=== PATIENT | female | born 1975 | race African-American/Black ===

== ENCOUNTER 2018-08-30 09:00 | Emergency (ER) | payer SELFPAY ==
[2018-08-30 09:04] VITALS: BMI 30.4
[2018-08-30] MEDS ORDERED: KETOROLAC TROMETHAMINE 30 MG/1 ML VIAL IVPUSH ONE (09:17)
--- NOTE | 2018-08-30 09:17 | PDOC ---
History of Present Illness - General Chief Complaint: Chest Pain Stated Complaint: CHEST PAIN Time Seen by Provider: 08/30/18 09:08 History Source: Patient Exam Limitations: No Limitations - History of Present Illness Initial Comments: 08/30/18 09:14 43y F hx of asthma, s/p kidney resection in remote past (due to 'infection') presents with complaint of chest pain. The patient states she was in her usual state of health this morning until she got on the phone to scream at her child, who was still sleeping and was goign to be late for school, when she suddenly felt a substernal sharp chest pain. The cp is non radiating, is sharp in nature , and seems to come and go. It also seems to worsen if she takes a deep breath and if she is pushing on it. pt denies any hemoptysis, sob, fever/chills, cough , n/v, diaphoresis, palpitations, lightheadedness, fever/chills, abd pain, back pain, numbness/tingoling/weakness, vision changes. pt ntoes she had an episode of abd cramping followed by diarrhea afterwards. no recent melena, bpr. no exertional sob/cp in the past family hx: asthma, htn no family hx of cardiac disease social: no rec drug use, smoking, etoh use Past History - Past Medical History Allergies/Adverse Reactions: Allergies Allergy/AdvReac Type Severity Reaction Status Date / Time morphine Allergy Verified 08/30/18 09:02 Home Medications: Ambulatory Orders NK [No Known Home Medication] 08/30/18 Disorders: Yes (LT NEPHRECTOMY) - Suicide/Smoking/Psychosocial Hx Smoking History: Never smoked Have you smoked in the past 12 months: No Hx Alcohol Use: No Drug/Substance Use Hx: No Substance Use Type: None Review of Systems - Review of Systems Able to Perform ROS?: Yes Comments:: 08/30/18 09:20 Constitutional - no reported Fever, Chills, HEENT: no reported vision changes, sore throat Respiratory: no reported cough, sob, hemoptysis Cardiac: + chest pain, no reported palpitations, light headedness, leg swelling Abd/GI: no reported abd pain, nausea, vomiting, blood per rectum, melena, diarrhea : no reported dysuria, frequency, discharge Musculskelatal - no reported back pain, joint swelling skin - no reported bruising, erythema, rash neurological: no reported headache, numbness, focal weakness, tingling, ataxia, hematologic: no reported easy bruising, easy bleeding *Physical Exam - Vital Signs Last Vital Signs Temp Pulse Resp BP Pulse Ox 88 20 126/52 L 99 08/30/18 09:37 08/30/18 09:37 08/30/18 09:37 08/30/18 09:37 - Physical Exam Comments: 08/30/18 09:20 GENERAL: The patient is awake, alert, and fully oriented, Nontoxic - in no acute distress. HEAD: Normocephalic, atraumatic. EYES: extraocular movements intact, sclera anicteric, conjunctiva clear. ENT: Normal voice, Moist mucous membranes. NECK: Normal range of motion, supple CHSET/LUNGS: Mild TTP to sternal area, Breath sounds equal, clear to auscultation bilaterally. No wheezes, no rhonchi, no rales. HEART: Regular rate and rhythm, normal S1 and S2 without murmur, rub or gallop. ABDOMEN: Soft, nontender, No guarding, no rebound. . No CVA tenderness EXTREMITIES: Normal range of motion, no edema. NEUROLOGICAL: No facial assymetry, Normal speech, moving all 4 extremities spontaneously and symmetrically PSYCH: Normal mood, normal affect. SKIN: Warm, Dry, normal turgor, no rashes on chest Heart Score/ECG Review - ECG Impressions Comment:: 08/30/18 09:21 Twelve-lead EKG was performed and reviewed by me. There is normal sinus rhythm with a normal rate. Rate of 94 The axis is normal. The intervals are normal. There is normal R wave progression There are no ST or T wave abnormalities. Impression: Normal twelve-lead EKG ED Treatment Course - LABORATORY CBC & Chemistry Diagram: 08/30/18 09:20 08/30/18 09:20 - ADDITIONAL ORDERS Additional order review: Laboratory Results 08/30/18 08/30/18 09:33 09:20 Sodium 142 Potassium 3.9 Chloride 109 H Carbon Dioxide 24 Anion Gap 9 BUN 8 Creatinine 1.0 Creat Clearance w eGFR > 60 Random Glucose 90 Calcium 7.9 L Total Bilirubin 0.3 AST 15 ALT 15 Alkaline Phosphatase 82 Creatine Kinase 142 Troponin I < 0.02 Total Protein 6.8 Albumin 3.2 L Lipase 91 Urine Color Straw Urine Appearance Clear Urine pH 7.0 Ur Specific [place] 1.005 L Urine Protein Negative Urine Glucose (UA) Negative Urine Ketones Negative Urine Blood Negative Urine Nitrite Negative Urine Bilirubin Negative Urine Urobilinogen Negative Ur Leukocyte Esterase Negative Urine HCG, Qual Negative 08/30/18 09:20 RBC 4.03 MCV 87.5 MCHC 33.3 RDW 13.0 MPV 8.2 Neutrophils % 48.1 Lymphocytes % 41.2 H Monocytes % 7.8 Eosinophils % 1.5 Basophils % 1.4 - RADIOLOGY Radiology Studies Ordered: Category Date Time Status CHEST X-RAY PORTABLE* [RAD] Stat Radiology 08/30/18 09:17 Completed - Medications Given in the ED: ED Medications Discontinued Medications Generic Name Dose Route Start Last Admin Trade Name Freq PRN Reason Stop Dose Admin Ketorolac Tromethamine 30 mg 08/30/18 09:17 08/30/18 09:31 Toradol Injection - IVPUSH 08/30/18 09:18 30 mg ONCE ONE Administration Medical Decision Making - Medical Decision Making 08/30/18 09:21 43-year-old female history of asthma, status post kidney resection in remote past presents with a complaint of chest pain during an emotional episode without associated diaphoresis, shortness of breath, cough, hemoptysis. Pain does seem reproducible on palpation. Differential for the patient's symptoms include costochondritis/strain, consider possible ACS consider possible PE however the patient is perk negative Obtain screening blood work will give the patient Toradol will obtain EKG and chest x-ray Will reassess 08/30/18 11:03 pt feeling improved labs unremarakble suspect msk cause of her pain. when i push on her chest, she still has mild pain, but states it is significantly improved will dc to fu with pmd return precautiosn were duscissed I discussed the physical exam findings, ancillary test results and final diagnoses with the patient. I answered all of the patient's questions. The patient was satisfied with the care received and felt comfortable with the discharge plan and treatment plan. The patient will call their primary care physician within 24 hours to arrange follow-up and will return to the Emergency Department with any new, persistent or worsening symptoms. *DC/Admit/Observation/Transfer Diagnosis at time of Disposition: Costochondral chest pain Chest pain Qualifiers: Chest pain type: unspecified Qualified Code(s): R07.9 - Chest pain, unspecified - Discharge Dispostion Disposition: HOME Condition at time of disposition: Improved Decision to Admit order: No - Referrals Referrals: Hernan Newton [Non Staff, Medical] - - Patient Instructions Printed Discharge Instructions: DI for Atypical Chest Pain Additional Instructions: Return to the emergency department immediately with ANY new, persistent or worsening symptoms during any nausea, vomiting, sweating, chest pain or other concerns. I suspect your chest pain is muscular in nature. Take motrin for the pain. You MUST call and follow up with your doctor tomorrow for further evaluation of your symptoms. Results were discussed with you. Please make sure your doctor reviews the results of your emergency evaluation. Print Language: [place]AST [place] - Post Discharge Activity
[2018-08-30] MEDS ORDERED: KETOROLAC TROMETHAMINE 30 MG/1 ML VIAL ONE (09:25)
[2018-08-30 09:29] LABS: BASO % 1.4 % (0-2.0); EOS % 1.5 % (0-4.5); HEMATOCRIT 35.2 % (32.4-45.2); HEMOGLOBIN 11.7 GM/dL (10.7-15.3); LYMPH % 41.2 % (8-40); MCH 29.1 pg (25.7-33.7); MCHC 33.3 g/dl (32.0-36.0); MEAN CELL VOLUME 87.5 fl (80-96); MEAN PLT VOLUME 8.2 fl (7.5-11.1); MONO % 7.8 % (3.8-10.2); NEUT % 48.1 % (42.8-82.8); PLATELET COUNT 211 K/MM3 (134-434); RBC 4.03 M/mm3 (3.60-5.2); WHITE BLOOD COUNT 5.4 K/mm3 (4.0-10.0)
--- NOTE | 2018-08-30 09:29 | EKG ---
Test Reason : Blood Pressure : / mmHG Vent. Rate : 094 BPM Atrial Rate : 094 BPM P-R Int : 148 ms QRS Dur : 082 ms QT Int : 338 ms P-R-T Axes : 064 040 040 degrees QTc Int : 422 ms NORMAL SINUS RHYTHM NONSPECIFIC T WAVE ABNORMALITY WHEN COMPARED WITH ECG OF 01-SEP-2016 19:29, NO SIGNIFICANT CHANGE WAS FOUND Confirmed by SHELLY SMYTH MD ([id number]) on 08/30/2018 9:29:13 AM Referred By: Confirmed By:SHELLY SMYTH MD
[2018-08-30 09:45] VITALS: BP 126/52; PULSE 88
[2018-08-30 09:56] LABS: URINE APPEARANCE CLEAR; URINE BILIRUBIN NEGATIVE (<2.0 mg/dL); URINE COLOR STRAW; URINE GLUCOSE (UA) NEGATIVE (NEGATIVE); URINE KETONE NEGATIVE (NEGATIVE); URINE LEUK ESTERASE NEGATIVE (NEGATIVE); URINE NITRITE NEGATIVE (NEGATIVE); URINE PROTEIN NEGATIVE (NEGATIVE); URINE UROBILINOGEN NEGATIVE mg/dL (0.2-1.0)
[2018-08-30 10:11] LABS: HCG,QUALITATIVE URINE Negative
[2018-08-30 10:39] LABS: ALBUMIN 3.2 g/dl (3.4-5.0); ALK PHOS 82 U/L (45-117); ANION GAP 9 MMOL/L (8-16); BILIRUBIN,TOTAL 0.3 mg/dL (0.2-1); BLOOD UREA NITROGEN 8 mg/dL (7-18); CALCIUM 7.9 mg/dL (8.5-10.1); CHLORIDE 109 mmol/L (98-107); CO2 24 mmol/L (21-32); GLUCOSE,RANDOM 90 mg/dL (74-106); LIPASE 91 U/L (73-393); POTASSIUM 3.9 mmol/L (3.5-5.1); SGOT/AST 15 U/L (15-37); SGPT/ALT 15 U/L (13-61); SODIUM 142 mmol/L (136-145); TOT PROT 6.8 g/dl (6.4-8.2)
[2018-08-30] MEDS ORDERED: RANITIDINE HCL 150 MG TABLET (FP) PO ONE (11:28)
[2018-08-30] MEDS ORDERED: RANITIDINE HCL 150 MG TABLET (FP) ONE (11:31)
== END 2018-08-30 11:37 | disposition home or self-care (01) ==
LOC: JER 09:00
PROC: 3E0333Z Introduction of Anti-inflammatory into Peripheral Vein, Percutaneous Approach (ICD-10-PCS; principal; 2018-08-30)
DX: M94.0 Chondrocostal junction syndrome [Tietze] (principal); R07.9 Chest pain, unspecified; J45.909 Unspecified asthma, uncomplicated
CPT/HCPCS: 36415; 71045-TC-FY; 80053; 81003; 82550; 83690; 84484; 84703; 85025; 93005; 93010; 99285-25